=== PATIENT | male | born 1990 | race Caucasian/White ===

== ENCOUNTER 2019-11-14 03:49 | Emergency (ER) | payer MEDICAID ==
[~2019-11-14] VITALS: Ht 172.7 cm; Wt 73.0 kg
[2019-11-14] MEDS ORDERED: HYDROCODONE/ACETAMINOPHEN 5/325MG TABLET PO STA (05:50)
[2019-11-14] MEDS ORDERED: LIDOCAINE 1%/EPI 1:100,000 10 ML VIAL IJ ONE (06:30)
[2019-11-14] MEDS ORDERED: BACITRACIN ZINC OINT UDPKT TOP ONE (06:30)
[2019-11-14] MEDS ORDERED: TETANUS, DIPHTHERIA, PERTUSSIS VAC/PF 0.5ML (>7YR OLD) IM ONE (06:30)
[2019-11-14] MEDS ORDERED: LIDOCAINE HCL/EPINEPHRINE 1%-EPI 1:100,000 20 ML VIAL INFIL SCH (07:00)
[2019-11-14] MEDS ORDERED: KETOROLAC 60MG/2ML VIAL IM ONE (08:00)
[2019-11-14 08:34] VITALS: BP 119/68
== END 2019-11-14 08:38 | disposition home or self-care (01) ==
LOC: ER 03:49
DX: S41.111A Laceration without foreign body of right upper arm, initial encounter (principal); S50.01XA Contusion of right elbow, initial encounter; Y08.89XA Assault by other specified means, initial encounter; Y93.89 Activity, other specified; Y92.89 Other specified places as the place of occurrence of the external cause; Y99.8 Other external cause status; J45.909 Unspecified asthma, uncomplicated
CPT/HCPCS: 12002; 73070; 73090; 90471; 90715; 96372; 99284; J1885; J3490

== ENCOUNTER 2019-11-18 14:28 | Emergency (ER) | payer MEDICAID ==
[~2019-11-18] VITALS: Ht 175.3 cm; Wt 83.9 kg
[2019-11-18 15:07] VITALS: BP 111/72
== END 2019-11-18 16:24 | disposition home or self-care (01) ==
LOC: ER 14:28
DX: S51.811D Laceration without foreign body of right forearm, subsequent encounter (principal); J45.909 Unspecified asthma, uncomplicated; Z76.0 Encounter for issue of repeat prescription; X58.XXXD Exposure to other specified factors, subsequent encounter
CPT/HCPCS: 99281; 99283

== ENCOUNTER 2019-11-24 17:29 | Emergency (ER) | payer MEDICAID ==
[~2019-11-24] VITALS: Ht 175.3 cm; Wt 86.0 kg
[2019-11-24 17:41] VITALS: BP 114/71
== END 2019-11-24 18:30 | disposition home or self-care (01) ==
LOC: ER 17:29
DX: Z48.02 Encounter for removal of sutures (principal)
CPT/HCPCS: 99281

== ENCOUNTER 2020-01-11 22:00 | Emergency (ER) | payer SELFPAY ==
[~2020-01-11] VITALS: Ht 172.7 cm; Wt 73.0 kg
[2020-01-11 23:40] VITALS: BP 114/74
== END 2020-01-11 23:40 | disposition home or self-care (01) ==
LOC: ER 22:00
DX: J45.909 Unspecified asthma, uncomplicated (principal)
CPT/HCPCS: 93005; 99283

== ENCOUNTER 2024-09-07 20:15 | Emergency (ER) | payer OTHER, MEDICAID ==
[~2024-09-07] VITALS: Ht 167.6 cm; Wt 64.0 kg
[2024-09-07 20:40] VITALS: BP 113/66; PULSE 93; RESP 18; TEMP 37; O2SAT 100
== END 2024-09-07 22:05 | disposition home or self-care (01) ==
LOC: ER 20:15
DX: F41.1 Generalized anxiety disorder (principal); J45.909 Unspecified asthma, uncomplicated; F32.A Depression, unspecified; Z79.899 Other long term (current) drug therapy
CPT/HCPCS: 71045; 99283